=== PATIENT | male | born 1950 | race Caucasian/White ===

== ENCOUNTER → 2020-05-24 15:56 | Outpatient (BNVA) | payer MEDICARE, SELFPAY | PROVIDERS: Visit Provider Urology | DX: N41.1 Chronic prostatitis (principal); N50.82 Scrotal pain | CPT/HCPCS: 99212 ==

== ENCOUNTER 2021-06-14 09:58 | Outpatient (REF) | payer SELFPAY ==
--- NOTE | 2021-06-14 14:03 | MHC.AU.HFU ---
Hearing Instrument Follow-Up- Binaural Date of Visit: 06/14/21 Right Ear: Metal Fabricating Inspector: Phonak Model: [id number] [id number] Serial Number: [id number] Repair Warranty: Battery Size: 312 Tubing: #2 slim tube Type of Dome: Medium Open Type of Wax Guard: None Dispensed By: [facility] Date of Fittin08/04/2013 Left Ear: Metal Fabricating Inspector: Phonak Model: Bolero [id number] Serial Number: [id number] Repair Warranty: Battery Size: 312 Tubing: #2 slim tube Type of Dome: Medium open Type of Wax Guard: None Dispensed By: [facility] Date of Fittin08/04/2013 Follow-Up Summary: Hearing Aid Problem - Patient reports the left aid is not working. Listening check verified, but battery check showed the battery is . Patient reports he changed the battery this morning. Reviewed the need to wait 2 minutes after removing the tab before putting batteries in the aids. Placed new batteries, changed slim tubes and domes, cleaned microphones and contacts. Both aids amplifying clearly. Recommendations: Advise audiologic re-evaluation. Patient to contact PCP to fax order for test. Diagnosis Code(s):Primary Diagnosis: H90.3 Bilateral Sensorineural Hearing Loss Services Performed: KEENAN Maintenance, Minor Repair (Quantity): 2 Signature: Provider: Rizwana Gill, [facility]
== END 2021-06-14 09:59 | disposition home or self-care (01) ==
LOC: HO.HAP 09:58
PROVIDERS: PCP Internal Medicine; Visit Provider Internal Medicine
DX: H90.3 Sensorineural hearing loss, bilateral (principal)
CPT/HCPCS: 99499

== ENCOUNTER 2023-03-17 13:33 | Outpatient (REF) | payer SELFPAY | END 2023-03-17 13:34 | disposition home or self-care (01) | LOC: HO.HAP 13:33 | PROVIDERS: Visit Provider Internal Medicine | DX: Z46.1 Encounter for fitting and adjustment of hearing aid (principal); H90.3 Sensorineural hearing loss, bilateral | CPT/HCPCS: V5267 ==

== ENCOUNTER 2023-03-18 12:47 | Outpatient (REF) | payer SELFPAY | END 2023-03-18 12:48 | disposition home or self-care (01) | LOC: HO.HAP 12:47 | PROVIDERS: Visit Provider Internal Medicine | DX: Z13.89 Encounter for screening for other disorder (principal) ==

== ENCOUNTER 2024-09-14 13:51 | Outpatient (REF) | payer SELFPAY ==
--- OUTSIDE RECORDS SUMMARY | 2024-09-14 14:31 | XMS_ITS | Clinical Summary ---
Author Organization [facility] Address [address] [place] [id number] Care Team Providers Care Washer Assembler Name Role Phone David Ivan MD Primary Care Provider [phone] Allergies No known active allergies Medications nadolol (CORGARD) 80 MG tablet Take 1 tablet (80 mg total) by mouth every evening. 03/14/2023 Active OMEprazole (PriLOSEC) 40 MG capsule Take 1 capsule (40 mg total) by mouth every morning. 02/18/2023 Active sertraline (ZOLOFT) 100 MG tablet Take 1 tablet (100 mg total) by mouth every evening. 01/02/2023 Active Secukinumab (COSENTYX, 300 MG DOSE, SC) Inject 300 mg under the skin every 30 days (once a month). Active B Complex Vitamins (VITAMIN B COMPLEX PO) Take by mouth. Active aspirin enteric coated (ECOTRIN LOW STRENGTH) 81 MG EC tablet Take 1 tablet (81 mg total) by mouth daily. Active bisacodyl (DULCOLAX) 5 MG EC tabletIndicatio ns:History of colon polyps Take 4 tablets (20 mg total) by mouth once. Take all 4 tablets 1 hour prior to starting to drink prep, on day prior to colonoscopy. 4 tablet 04/06/2023 Active sodium-potassiu m-magnesium sulfates (Suprep Bowel Prep Kit) 17.5-3.13-1.6 GM/177ML Solution solutionIndicat ions:History of colon polyps Take two 177 mL bottles as directed 2 each 04/06/2023 Active atorvastatin (LIPITOR) 40 MG tablet every evening. 04/30/2023 Active riboflavin 100 MG tablet Take 1 tablet (100 mg total) by mouth daily. Active Active Problems No known active problems Social History Tobacco Use Types Packs/Day Years Used Date Smoking Tobacco: Never Smokeless Tobacco: Never Alcohol Use Standard Drinks/Week Comments Yes 4 (1 standard drink = 0.6 oz pur e alcohol) Sex and Gender Information Value Date Recorded Sex Assigned at Male 02/03/2023 2:40 PM EST Legal Sex Male 6:58 PM EDT Gender Identity Male 02/03/2023 2:40 PM EST Sexual Orientation Heterosexual (straight) 02/03 2:40 PM EST Last Filed Vital Signs Vital Sign Reading Time Taken Comments Blood Pressure 126/69 06/04/2023 1:42 PM EDT Pulse 52 06/04/2023 1:42 PM EDT Temperature 35.1 C (95.2 F) 06/04/2023 12:29 PM EDT Respiratory Rate 18 06/04/2023 1:42 PM EDT Oxygen Saturation 95% 06/04/2023 1:42 PM EDT Inhaled Oxygen Concentration - - Weight 101 kg (222 lb) 04/27/2023 2:02 PM EDT Height 180.3 cm (5' 11 ) 04/06/2023 1:34 PM EST Body Mass Index 30.96 04/06/2023 1:34 PM EST Plan of Treatment Health Maintenance Due Date Last Done Comments Hepatitis C Virus Screening 1952 Quantiferon Gold TB 1962 DTaP/Tdap/Td Vaccines (1 - Tdap) 04/22/1971 Pneumococcal Vaccines 50+ (1 of 2 - PCV) 04/22/1971 Zoster (Shingles) Vaccine (1 of 2) 04/22/1971 RSV Vaccine 60 years and older and Patients (1 - Risk 60-74 years 1-dose series) 2012 COVID-19 Vaccine ( season) 2023 01/06/2022, 06/10/2021, 11/12/2020, Additional history exists Influenza Vaccine 09/16/2024 12/24/2020, 11/14/2015 Colonoscopy 06/03/2026 06/04/2023 Hepatitis B Vaccines Aged Out No long er eligible based on patient's age to complete this topic Medical Devices Implanted Type Area Pig Lead Melter Helper Device Identifier Shelf Expiration Date Model / Serial / Lot Implantable Loop Recorder Implantable Loop Recorder Left: Chest Description:loop recorder Insurance MEDIC[facility] PART A & [facility] B [employer] [place] [id number] MEDICARE PART A & B [place] [id number] Care Teams Washer Assembler Relationship Specialty Start Date End Date David Ivan MD [address] [place] [id number] PCP - General Internal Medicine 02/03/23
--- OUTSIDE RECORDS SUMMARY | 2024-09-14 14:31 | XMS_ITS ---
Author Name [facility] Unknown History of Medication Use Medication Directions Dispensed Refills Start Date End Date Stat us bisacodyl (DULCOLAX) 5 MG EC tablet Take 4 tablets (20 mg total) by mouth once. Take all 4 tablets 1 hour prior to starting to drink prep, on day prior to colonoscopy. 04/06/2023 active OMEprazole (PriLOSEC) 40 MG capsule Take by mouth daily. 02/18/2023 active simvastatin (ZOCOR) 40 MG tablet Take 40 mg by mouth daily. 12/30/2022 active riboflavin 100 MG tablet Take 1 tablet (100 mg total) by mouth daily. active Secukinumab (COSENTYX, 300 MG DOSE, SC) Inject 300 mg under the skin every 30 days (once a month). active Problems Problem Status Onset Date Problem Type Date of Resolution Source Fall active EncounterDiagnosisAct [facility] Head contusion active EncounterDiagnosisAct [facility] Gastroesophageal reflux disease, unspecified whether esophagitis present active [facility] History of colon polyps active [facility] Encounters Encounter Type Encounter Reason Primary Diagnosis Location Date Emergency Unspecified fall, initial encounter Unspecified fall, initial encounter [facility] 06/18/2023 Ambulatory Gastro-esophageal reflux disease without esophagitis Gastro-esophageal reflux disease without esophagitis [facility] 06/04/2023 Ambulatory Personal history of colonic polyps Personal history of colonic polyps [facility] 04/06/2023 Care Team Organization Name Specialty Phone Email Start Date End [facility] 06/19/2023 08/30/2024 [facility] 05/0 04/2023 [facility] 06/18/2023 [facility] 04/06/2023 05/04/2024 [facility] 04/06/2023 04/06/19 [place] [facility]
--- OUTSIDE RECORDS SUMMARY | 2024-09-14 14:31 | XMS_ITS | Clinical Summary ---
Author Organization [facility] Address [address] [place] [id number] Phone Care Team Providers Care Fitness And Wellness Manager Name Role Phone Cristina Medel MD Primary Care Provider + Social History Tobacco Use Types Packs/Day Years Used Date Smoking Tobacco: Never Assessed Education Answer Date Recorded Are you interested in more education? Not on mauricio e 06/13/2022 Are you concerned about learning? Not on file 06/13/2022 No 06/13/2022 No 06/13/2022 Digital Access Answer Date Recorded No 07/15/2022 No 07/15/2022 Reliable internet access at home? Not on file 07/15/2022 Device with a working camera? Not on file Sex and Gender Information Value Date Recorded Sex Assigned at Not on file Legal Sex Male 2:22 PM EST Gender Identity Not on file Sexual Orientation Not on file Plan of Treatment Not on file Medical Devices Not on file Insurance MEDICARE PART A & B [employer] MEDICARE PART A & B [employer] SUPPLE[employer] MEDICARE PART A & B [employer] SUPPLEMENT MEDICARE PART A & B [employer] SUPPLEMENT MEDICARE PART A & B [employer] SUPPLEMENT MEDICARE PART A & B [employer] SUPPLEMENT MEDICARE PART A & B [employer] SUPPLEMENT MEDICARE PART A & B [employer] MED[employer] SUPPLEMENT MEDICARE PART A & B [facility] MEDEX SUPPLEMENT Care Teams Fitness And Wellness Manager Relationship Specialty Start Date End Date Cristina Medel MD PCP - General Cardiology 04/10/20 Additional Source Comments The information contained in this document represents components of the legal health record. It is not the complete legal health record.[facility]
--- OUTSIDE RECORDS SUMMARY | 2024-09-14 14:31 | XMS_ITS | Clinical Summary ---
Author Organization [facility] Address [address] [place] [address] Care Team Providers Care Reed Cleaner Name Role Phone David Ivan MD Primary Care Provider [phone] Allergies No known active allergies Medications No known medications Active Problems No known active problems Social History Tobacco Use Types Packs/Day Years Used Date Smoking Tobacco: Never Assessed Smokeless Tobacco: Never Alcohol Use Standard Drinks/Week Comments Not Currently 0 (1 standard drink = 0.6 oz pur e alcohol) Sex and Gender Information Value Date Recorded Sex Assigned at Male 06/18/2023 5:42 PM EDT Gender Identity Not on file Sexual Orientation Not on file Job Start Date Occupation Industry Not on file Not on file Not on file Last Filed Vital Signs Vital Sign Reading Time Taken Comments Blood Pressure 127/60 06/18/2023 4:43 PM EDT Pulse 67 06/18/2023 4:43 PM EDT Temperature 36.6 C (97.9 F) 06/18/2023 4:43 PM EDT Respiratory Rate 20 06/18/2023 4:43 PM EDT Oxygen Saturation 95% 06/18/2023 4:43 PM EDT Inhaled Oxygen Concentration - - Weight 99.8 kg (220 lb) 06/18/2023 4:43 PM EDT Height 180.3 cm (5' 11 ) 06/18/2023 4:43 PM EDT Body Mass Index 30.68 06/18/2023 4:43 PM EDT Plan of Treatment Health Maintenance Due Date Last Done Comments Hepatitis C Screening 1950 Depression Screening 1964 Preventative Health Evaluation 1970 DTap / Tdap / Td (1 - Tdap) 04/22/1971 Colon Cancer Screening (Colonoscopy) 1997 Shingrix-Zoster Vaccine (1 of 2) 2002 Fall Risk Assessment 2017 COVID-19 Vaccine ( season) 2023 01/06/2022, 06/10/2021, 11/12/2020 Influenza Vaccine (#1) 2024 3, 12/24/2020, 12/10/2019, Additional history exists RSV Adult > 60+ Yrs or (1 - 1-dose 75+ series) 04/22/2027 Pneumococcal Vaccine Completed 01/28/2019, 01/16/20 18 Hepatitis B Vaccines Aged Out No long er eligible based on patient's age to complete this topic RSV Ped < 20 months Aged Out No longe r eligible based on patient's age to complete this topic Care Teams Reed Cleaner Relationship Specialty Start Date End Date David Ivan MD [address] [address] PCP - General Brim Pouncer Machine Operator 06/18/23
--- NOTE | 2024-09-14 15:51 | MHC.AU.HA3 ---
Hearing Instrument Follow-Up- Binaural Date of Visit: 09/14/24 Right Ear: Eilud, , Color, Serial Number: Mee Michael [id number] SN: [id number] Oil Pipe Inspector Helper Repair Warranty: 10/23/2017 Oil Pipe Inspector Helper Loss and Damage Warranty: 10/23/2017 Battery Size: 312 Air Conditioning Supervisor/Slim Tube: 2 slim tube Earmold/Dome/CShell/SlimTip:Medium open dome Dispensed By: [facility] Date of Fittin08/04/2013 Left Ear: Eliud, , Color, Serial Number: Mee Michael [id number] SN: [id number] Oil Pipe Inspector Helper Repair Warranty: 10/23/2017 Oil Pipe Inspector Helper Loss and Damage Warranty: 10/23/2017 Battery Size: 312 Air Conditioning Supervisor/Slim Tube: 2 slim tube Earmold/Dome/CShell/SlimTip: Medium open dome Dispensed By: [facility] Date of Fittin08/04/2013 Follow-Up Summary: Reported tried to change batteries, put new battery in KEENAN instead of battery door compartment and HAs have been ever since. Confirmed in office. All troubleshooting (cleaning, changing tubes, domes, dehumidifier, vacuumed microphones) unsuccessful. Battery contacts appear to be in tact. Left KEENAN turned on for a few seconds then . Discussed options. 1. Send HAs to [facility], quoted $385.00 per aid, $770.00 total. 2. Consider new HAs due to age of current pair, provided dietrich list. Elliott will discuss with . If he chooses to send HAs for repair, he will drop them off at front facer. If he chooses to pursue new HAs, he will request order from PCP for updated hearing test. Recommendations: Hearing instrument follow-up or maintenance as needed. Please contact our clinic with any questions or concerns. Diagnosis Code(s): Primary Diagnosis: H90.3 Bilateral Sensorineural Hearing Loss Signature: Provider: Bro Sibley, [facility]
== END 2024-09-14 13:52 | disposition home or self-care (01) ==
LOC: HO.HAP 13:51
PROVIDERS: Visit Provider Internal Medicine
DX: Z13.89 Encounter for screening for other disorder (principal)